=== PATIENT | female | born 1960 | race Caucasian/White ===

== ENCOUNTER 2018-01-22 07:07 | Emergency (ER) | payer OTHER, SELFPAY ==
[2018-01-22 07:08] VITALS: BP 155/110; PULSE 75; RESP 16; TEMP 37.1; O2SAT 96; BMI 44.4
--- NOTE | 2018-01-22 07:30 | CT_ITS ---
STUDY: CT BRAIN WITHOUT CONTRAST REASON FOR EXAM: Female, 57 years old. Sudden onset of dizziness. RADIATION DOSAGE (If Supplied By Facility): CTDIvol = ( 60.81 ) mGy, DLP = ( 998.67 ) mGycm TECHNIQUE: Transaxial CT imaging of the brain was performed without administration of intravenous contrast material. Individualized dose optimization techniques were used for this CT. COMPARISON: None. FINDINGS: Normal soft tissue structures. Normal calvarium. Normal size ventricles and extra-axial spaces for the patient's age. Normal white matter tracts of the cerebral hemispheres. Normal basal ganglia and thalami. Normal brainstem. Normal cerebellum. There is no intracranial hemorrhage. There are no findings of an acute ischemic infarction. Normal visualized paranasal sinuses. CT/Brain/Head without Contrast IMPRESSION: Normal unenhanced CT scan of the brain. Electronically Signed: Kwame Hsu MD at 8:47 EDT Tel [phone], Service support ,
--- NOTE | 2018-01-22 07:30 | EKG12_ITS ---
Test Reason : DIZZINESS Blood Pressure : / mmHG Vent. Rate : 062 BPM Atrial Rate : 062 BPM P-R Int : 142 ms QRS Dur : 082 ms QT Int : 386 ms P-R-T Axes : 038 058 035 degrees QTc Int : 391 ms Normal sinus rhythm Nonspecific T wave abnormality Abnormal ECG Confirmed by FABY LAL, QIAN ([id number]), assistant production editor MARY HECTOR ([id number] on 01/25/2018 1:53:13 PM Referred By: MEGAN Confirmed By:QIAN HOBBS MD
[2018-01-22] MEDS: Meclizine HCl 25 MG Tablet PO (07:43)
--- NOTE | 2018-01-22 07:48 | ED.VISSUMM ---
- ER Visit Summary Date of Service: 01/22/18 Chief Complaint: Dizzy History of Present Illness: The patient is a 57 F who presents with dizziness which she describes as a spinning and off-balance sensation. 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 Patient denies chest pain, palpitations, shortness of breath, or near syncope. Patient states her symptoms are now improving. She denies headache. She states she has had some cold symptoms recently. She has had similar symptoms in the past with fluid in ears. Past history significant for COPD, hypertension, high cholesterol, vertigo, hypothyroidism. Physical Examination: Vital signs reveal blood pressure 155/110, otherwise unremarkable. Head and neck examination is unremarkable other than mild clear fluid behind the TMs bilaterally. Heart is regular rate and rhythm. On lung sounds are clear. Abdomen is soft nontender. Neuro exam is normal. Test Results: EKG is sinus at 62 with no sign of acute ischemia. CBC and chemistry studies are normal. CT the head is unremarkable. Emergency Department Course and Treatment: Patient did have mild reproduction of her symptoms with [place]-Hallpike maneuver. Patient was given p.o. Antivert. On repeat evaluation she has ambulated to the bathroom twice. Patient states the first time she felt slightly dizzy when she first sat up. The second time she had no dizziness at all. She be discharged with a prescription for Antivert. Treatment Plan: [] Disposition: Discharge Impression: Vertigo, improved This note was generated with [employer] dictation software. It may contain incorrect words, spelling, and punctuation that were not noted in review of the chart prior to signing ED Disposition - Plan for ED Patient: Chief Complaint: Dizziness Referrals: Devaughn Ackerman [Primary Care Provider] -
[2018-01-22 07:57] LABS: Absolute Lymphocyte Count 2.13 X10^3/ul (0.83-4.51); Absolute Neutrophil Count 2.8 X10^3/uL (2.0-7.7); Basophil# 0.03 X10^3/uL; Basophil% 0.5 % (0-1); Eosinophil# 0.14 X10^3/uL; Eosinophils% 2.3 % (0-5); Hematocrit 46.1 % (37-47); Hemoglobin 14.9 g/dl (12.0-15.0); Lymphocyte # 2.13 X10^3/ul (4.0); Lymphocyte % 35.5 % (19-41); Mean Corp Hgb Conc 32.3 g/gl (32-36); Mean Corpuscular Hgb 31.2 pg (27.0-32.0); Mean Corpuscular Volume 96.4 fL (81-99); Mean Platelet Vol. 9.8 fl (6.2-12.0); Monocyte# 0.89 X10^3/uL; Monocyte% 14.8 % (0-10); Neutrophil % 46.7 % (47-70); Platelet Count 266 K/mm3 (150-450); RBC Distribution Width CV 13.3 % (11.6-14.6); RBC Distribution Width SD 47.6 fl (35.1-43.9); Red Blood Count 4.78 M/mm3 (4.2-5.4)
[2018-01-22 07:58] LABS: POSITIVE COUNT NO; POSITIVE DIFFERENTIAL NO; POSITIVE MORPHOLOGY NO
[2018-01-22 08:06] LABS: BUN 11 mg/dL (7-18); BUN/Creat Ratio 15.9 RATIO (10-20); Calcium,Total 9.1 mg/dL (8.5-10.1); Chloride 106 mmol/L (98-107); Creatinine, Serum 0.69 mg/dL (0.55-1.02); EST Glomerular Filtration Rate 94 mL/min (>60); Est Glom Filt Rate - Afr Amer 113 mL/min (>60); Estimated Creatinine Clearance 69.52 ml/min; Glucose 84 mg/dL (74-106); Potassium 4.1 mmol/L (3.5-5.1); Sodium Level 140 mmol/L (136-145)
[2018-01-22 08:07] LABS: Anion Gap 6 (5-15)
[2018-01-22 09:20] VITALS: BP 166/95; PULSE 72; RESP 18; O2SAT 97
--- NOTE | 2018-01-22 09:29 | ED.DEP ---
ED Disposition - Plan for ED Patient: Disposition: Home or Assisted Living Chief Complaint: Dizziness Instructions: ED Vertigo Unspecified Prescriptions: Meclizine HCl [Antivert] 25 mg PO 4X/DAY PRN PRN #20 tablet PRN Reason: Dizziness Referrals: Devaughn Ackerman [Primary Care Provider] - 1-2 Weeks
[2018-01-22 09:51] VITALS: BP 161/98; PULSE 72; RESP 16; O2SAT 98
== END 2018-01-22 09:52 | disposition home or self-care (01) ==
PROVIDERS: Emergency Provider Emergency Medicine; Family Provider Nurse Practitioner Family; PCP Nurse Practitioner Family
DX: R42 Dizziness and giddiness (principal); J44.9 Chronic obstructive pulmonary disease, unspecified; I10 Essential (primary) hypertension; E78.00 Pure hypercholesterolemia, unspecified; E03.9 Hypothyroidism, unspecified; Z72.0 Tobacco use; Z79.899 Other long term (current) drug therapy
CPT/HCPCS: 70450; 80048; 85025; 93005; 96360; 96361; 99285; J7030; J7040; A4216

== ENCOUNTER → 2018-02-15 12:33 | Outpatient (CLI) | payer OTHER, SELFPAY ==
--- NOTE | 2018-02-15 12:37 | BI_ITS ---
MAMMOGRAPHY - BILATERAL SCREENING REASON FOR EXAM: Female, 57 years old. Routine annual screening examination. PERTINENT HISTORY: Grandmother with breast cancer. TECHNIQUE: Digital bilateral breast fernando (3D mammographic acquisition) in the CC and MLO projections. 2-D mediolateral oblique (MLO) and craniocaudad (CC) views of both breasts were obtained. CAD: Full Field Digital Mammography with Computer Added Detection was performed. COMPARISON: Comparison is made with prior study dated January 30, 2017 and 2014. FINDINGS: Breast Composition: The breasts are heterogeneously dense, which may obscure small masses. There are no dominant masses or suspicious calcifications. Stable benign-appearing bilateral axillary lymph nodes. No other significant abnormalities are identified. There has been no significant change since the prior study. BI/SCREENING MAMM (CAD), BILAT IMPRESSION: Stable bilateral screening mammogram. Yearly follow-up mammogram recommended. (A) ASSESSMENT CATEGORY: BIRADS Category 2: Benign. A letter regarding these results will be sent to the patient by the facility within 30 days. Approximately 10% of breast cancers are not detected by mammography. A normal mammogram should not delay biopsy of a clinically suspicious abnormality. [id number] Electronically Signed: Kwame Hsu MD at 15:12 EDT Tel [phone], Service support ,
== END ==
PROVIDERS: Family Provider Nurse Practitioner Family; PCP Nurse Practitioner Family; Visit Provider Nurse Practitioner Family
DX: Z12.31 Encounter for screening mammogram for malignant neoplasm of breast (principal)
CPT/HCPCS: 77063; 77067

== ENCOUNTER → 2022-04-26 | Outpatient (CLI) | payer OTHER, SELFPAY ==
--- NOTE | 2022-04-26 12:02 | BI_ITS ---
MAMMOGRAPHY - BILATERAL SCREENING REASON FOR EXAM: Female, 62 years old. Routine annual screening examination. PERTINENT HISTORY: Grandmother with breast cancer. TECHNIQUE: Digital bilateral breast juan (3D mammographic acquisition) in the CC and MLO projections. 2-D mediolateral oblique (MLO) and craniocaudad (CC) views of both breasts were obtained. CAD: Full Field Digital Mammography with Computer Added Detection was performed. COMPARISON: Comparison is made with prior study dated 02/15/2018 and 01/30/2017. FINDINGS: Breast Composition: The breasts are extremely dense, which lowers the sensitivity of mammography. There are no dominant masses or suspicious calcifications. No other significant abnormalities are identified. There has been no significant change since the prior study. BI/SCRN MAMM (CAD)W/JUAN BILAT IMPRESSION: Stable bilateral screening mammogram. Yearly follow-up mammogram recommended. (A) ASSESSMENT CATEGORY: BIRADS Category 1: Negative. A letter regarding these results will be sent to the patient by the facility within 30 days. Approximately 10% of breast cancers are not detected by mammography. A normal mammogram should not delay biopsy of a clinically suspicious abnormality. [id number] Electronically Signed: Kwame Hsu MD at 13:33 EDT ,
== END | disposition home or self-care (01) ==
LOC: OPBI 11:59
PROVIDERS: PCP Nurse Practitioner Family; Visit Provider Nurse Practitioner Family
DX: Z12.31 Encounter for screening mammogram for malignant neoplasm of breast (principal); Z80.3 Family history of malignant neoplasm of breast
CPT/HCPCS: 77063; 77067

== ENCOUNTER → 2024-01-02 | Outpatient (CLI) | payer OTHER, SELFPAY ==
--- NOTE | 2024-01-02 09:46 | BI_ITS ---
MAMMOGRAPHY - BILATERAL SCREENING REASON FOR EXAM: Female, 63 years old. Routine annual screening examination. PERTINENT HISTORY: Grandmother with breast cancer. TECHNIQUE: Digital bilateral breast juan (3D mammographic acquisition) in the CC and MLO projections. 2-D mediolateral oblique (MLO) and craniocaudad (CC) views of both breasts were obtained. CAD: Full Field Digital Mammography with Computer Added Detection was performed. COMPARISON: Comparison is made with prior study April 26, 2022 and February 15, 2018. FINDINGS: Breast Composition: The breasts are extremely dense, which lowers the sensitivity of mammography. There are no dominant masses or suspicious calcifications. No other significant abnormalities are identified. There has been no significant change since the prior study. BI/SCRN MAMM (CAD)W/JUAN BILAT IMPRESSION: Stable bilateral screening mammogram. Yearly follow-up mammogram recommended. (A) ASSESSMENT CATEGORY: BIRADS Category 1: Negative. A letter regarding these results will be sent to the patient by the facility within 30 days. Approximately 10% of breast cancers are not detected by mammography. A normal mammogram should not delay biopsy of a clinically suspicious abnormality. [id number] Electronically Signed: Kwame Hsu MD at 12:50 EDT ,
== END | disposition home or self-care (01) ==
PROVIDERS: PCP Nurse Practitioner Family; Referring Provider Nurse Practitioner Family; Visit Provider Nurse Practitioner Family
DX: Z12.31 Encounter for screening mammogram for malignant neoplasm of breast (principal)
CPT/HCPCS: 77063; 77067

== ENCOUNTER → 2025-06-19 | Outpatient (CLI) | payer OTHER, SELFPAY ==
--- NOTE | 2025-06-19 10:28 | BI_ITS ---
EXAM: SCRN MAMM (CAD)W/JUAN BILAT DATE: 06/19/2025 CLINICAL HISTORY: F, Age 65 y/o , SCREENING TECHNIQUE: Procedure Code: [id number] Modality: MG Procedure: SCRN MAMM (CAD)W/JUAN BILAT COMPARISON: Prior exam(s) were compared. FINDINGS: TISSUE DENSITY: The breasts are heterogeneously dense, which may obscure small masses. Bilateral Breast Mammographic Findings: No suspicious masses, calcifications or other abnormalities are identified. BI/SCRN MAMM (CAD)W/JUAN BILAT IMPRESSION: No mammographic evidence of malignancy in either breast. OVERALL FINAL ASSESSMENT BI-RADS 1: NEGATIVE. RECOMMENDATION: Routine annual follow-up in 1 Year Additional Recommendation none A letter with findings and recommendations will be mailed to the patient. Reading Location: [id number]
--- OUTSIDE RECORDS SUMMARY | 2025-06-19 10:52 | XMS RPT_ITS | CCD ---
Author Organization [facility] Partnership [facility] Care Team Providers Care Charity Fundraiser Name Role Phone [employer] ASSEMBLY INSPECTOR - GURU, DEVAUGHN Sin Primary Care [facility] ician PRUDENCE LAL, DR VIKKI ANGUIANO Attending Unav ailable [employer] INSPECTOR - CLINICAL OFFICE TECHNICIAN, DEVAUGHN Sin Primary Care U SAADIA Mcleod MD Consulting [place] FOSS MD, DR VIKKI ANGUIANO Consulting Johnna FOSS MD, DR VIKKI ANGUIANO Attending Unav ailable [employer]BLY INSPECTOR - CLINICAL OFFICE TECHNICIAN, DEVAUGHN Sin Primary Care U navailable [employer]Y INSPECTOR - CLINICAL OFFICE TECHNICIAN, DEVAUGHN Sin Attending U navailable [employer]SEM[employer]Y INSPECTOR - CLINICAL OFFICE TECHNICIAN, DEVAUGHN Sin Primary Care U navailable [employer]SEMBLY INSPECTOR - CLINICAL OFFICE TECHNICIAN, DEVAUGHN Sin Attending U navailable [employer] ASSEMBLY INSPECTOR - CLINICAL OFFICE TECHNICIAN, DEVAUGHN Sin Primary Care U navailable [employer]SEM[employer]Y INSPECTOR - CLINICAL OFFICE TECHNICIAN, DEVAUGHN Sin Attending U navailable [employer] ASSEMBLY INSPECTOR - CLINICAL OFFICE TECHNICIAN, DEVAUGHN Sin Primary Care U navailable [employer]SEMBLY INSPECTOR - CLINICAL OFFICE TECHNICIAN, DEVAUGHN Sin Attending U navailable [employer]Y INSPECTOR - CLINICAL OFFICE TECHNICIAN, DEVAUGHN Sin Primary Care U navailable WESLEY ORELLANA Attending Unavailable [employer]SEMBLY INSPECTOR - CLINICAL OFFICE TECHNICIAN, DEVAUGHN Sin Primary Care U rigoberto FOSS MD, DR VIKKI ANGUIANO Attending Unav ailable [employer] ASSEMBLY INSPECTOR - CLINICAL OFFICE TECHNICIAN, DEVAUGHN Sin Primary Care U rigoberto FOSS MD, DR VIKKI ANGUIANO Attending Unav ailable [employer]SEMBLY INSPECTOR - GURU, DEVAUGHN Sin Primary Care U navailable [facility] MEMORANDUM STATEMENT CLERK, Devaughn Graham Referring Unav ailable [facility] MEMORANDUM STATEMENT CLERK, Devaughn Graham Attending Unav ailable [facility] MEMORANDUM STATEMENT CLERK, Devaughn Graham Primary Care Unav ailable Allergies Allergy Classification Reported Allergen(s) Allergy Type Date of Onset Reaction(s) Facility (3 sources) Adhesive agent; Translations: [adhesive] Propensity to adverse reactions 01-23-20 [facility] (7 sources) Codeine; Translations: [codeine] Drug Allergy 01-23-20 Nausea and vomiting (disorder) [facility] (2 sources) Lidocaine Drug Allergy 01-23-20 [facility] (5 sources) Adhesive bandage Allergy to substance Cutaneous eruption (morphologic abnormality) [facility] [place] (5 sources) Latex Allergy to substance Weal (disorder) [facility] (5 sources) Class Ic antiarrhythmic agent (substance); Translations: [local anesthetic-type antiarrhythmics] Drug allergy Eruption of skin (disorder), Inflammatory dermatosis (disorder), Weal (disorder) [facility] Comment on above: x1 during breast bio psy (5 sources) Aloes - chemical (substance); Translations: [aloe derivatives] Allergy to substance Weal (disorder) [facility] [place] (5 sources) [place] Allergy to substance Difficulty breathing (finding), Eruption of skin (disorder) [facility] [place] (1 source) strawberry allergenic extract Drug Allergy Weal (disorder) [facility] [place] (1 source) Codeine Drug Allergy 01-23-20 [facility] (1 source) Lidocaine Drug Allergy 01-23-20 [facility] Medications Current Medications Medication Drug Class(es) Dates Sig (Normalized) Sig (Original) albuterol MDI (90 mcg/inh) [facility]FC free inhalation aerosol (1 source) Start: 11-16-2023 take 1 puff(s) by inhalation every four hours as needed for wheezing albuterol MDI (90 mcg/inh) CFC free inhalation aerosol 1 puff(s), Inhalation, q4h, PRN as needed for wheezing, # 18 gram(s), 2 Refill(s), Pharmacy: [facility] #[id number], COPD - Chronic obstructive pulmonary disease, 153.3, cm, 11/16/23 11:40:00 EST, Height, kg, 11/16/23 11:40:00 EST, Dosing Weight Start Date: 11/16/23 Status: Ordered amoxicillin 500 mg oral capsule (1 source) Penicillin-class Antibacterial Start: 06-14-2023 take 1 capsule by mouth three times daily amoxicillin 500 mg oral capsule TAKE 1 CAPSULE BY MOUTH THREE TIMES A DAY UNTIL GONE Start Date: 06/14/23 Status: Ordered Anoro Ellipta 62.5 mcg-25 mcg/inh inhalation powder (5 sources) Start: 11-16-2023 End: 02-14-2024 take 1 dose by inhalation once daily Anoro Ellipta 62.5 mcg-25 mcg/inh inhalation powder Dose = 1 puff(s), Inhalation, qDay, # 3 EA, 0 Refill(s), Pharmacy: [facility], COPD, moderate, 153.3, cm, 11/16/23 11:40:00 EST, Height, kg, 11/16/23 11:40:00 EST, Dosing Weight Start Date: 11/16/23 Stop Date: 02/14/24 Status: Ordered Start: 06-07-2023 End: 12-04-2023 take 1 dose by inhalation once daily Anoro Ellipta 62.5 mcg-25 mcg/inh inhalation powder Dose = 1 puff(s), Inhalation, qDay, # 3 EA, 1 Refill(s), Pharmacy: [facility]/pharmacy #[id number], COPD, moderate, 154.9, cm, 06/07/23 10:43:00 EDT, Height, kg, 06/07/23 10:43:00 EDT, Dosing Weight Start Date: 06/07/23 Stop Date: 12/04/23 Status: Ordered Start: 11-13-2022 End: 05-12-2023 take 1 dose by inhalation once daily Anoro Ellipta 62.5 mcg-25 mcg/inh inhalation powder Dose = 1 puff(s), Inhalation, qDay, # 3 EA, 1 Refill(s), Pharmacy: [facility], COPD, moderate, 152.5, cm, 11/13/22 10:17:00 EST, Height, kg, 11/13/22 10:17:00 EST, Dosing Weight Start Date: 11/13/22 Stop Date: 05/12/23 Status: Ordered ergocalciferol 1.25 mg oral capsule (2 sources) Provitamin D2 Compound Start: 01-22-2018 take 1 capsule by mouth every week Ergocalciferol (Vitamin D2) (Vitamin D) 50,000 UNIT capsule Active 50894 UNIT PO Q7D January 22, 2018 12:00am levothyroxine sodium 0.05 mg oral tablet (7 sources) l-Thyroxine Start: 11-16-2023 End: 12-16-2023 Synthroid 50 mcg (0.05 mg) oral tablet Dose : 50 mcg = 1 tab(s), Oral, qDay, # 30 tab(s), 0 Refill(s), Pharmacy: [facility], 153.3, cm, 11/16/23 11:40:00 EST, Height, kg, 11/16/23 11:40:00 EST, Dosing Weight Start Date: 11/16/23 Stop Date: 12/16/23 Status: Ordered Start: 06-07-2023 Synthroid 50 m cg (0.05 mg) oral tablet Dose : 50 mcg = 1 tab(s), Oral, qDay, # 90 tab(s), 1 Refill(s), Pharmacy: [facility]/pharmacy #[id number], 154.9, cm, 06/07/23 10:43:00 EDT, Height, kg, 06/07/23 10:43:00 EDT, Dosing Weight Start Date: 06/07/23 Status: Ordered Start: 12-05-2022 Synthroid 50 m cg (0.05 mg) oral tablet Dose : 50 mcg = 1 tab(s), Oral, qDay, # 90 tab(s), 1 Refill(s), Pharmacy: [facility], 152.5, cm, 12/05/22 9:54:00 EDT, Height, kg, 11/13/22 10:17:00 EST, Dosing Weight Start Date: 12/05/22 Status: Ordered Start: 01-22-2018 take 50 ug by mouth once daily Levothyroxine Active 50 MCG PO DAILY January 22, 2018 12:00am losartan potassium 50 mg oral tablet (5 sources) Angiotensin 2 Receptor Dianna Start: 06-07-2023 End: 12-16-2023 losartan 50 mg oral tablet Dose : 50 mg = 1 tab(s), Oral, qDay, # 30 tab(s), 0 Refill(s), Pharmacy: [facility], HTN, goal below 140/90, 153.3, cm, 11/16/23 11:40:00 EST, Height, kg, 11/16/23 11:40:00 EST, Dosing Weight Start Date: 11/16/23 Stop Date: 12/16/23 Status: Ordered Start: 11-13-2022 End: 05-12-2023 losartan 50 mg oral tablet D ose : 50 mg = 1 tab(s), Oral, qDay, # 90 tab(s), 1 Refill(s), Pharmacy: [facility], HTN, goal below 140/90, 152.5, cm, 11/13/22 10:17:00 EST, Height, kg, 11/13/22 10:17:00 EST, Dosing Weight Start Date: 11/13/22 Stop Date: 05/12/23 Status: Ordered lovastatin 20 mg oral tablet (7 sources) HMG-CoA Reductase Inhibitor Start: 06-07-2023 End: 12-16-2023 lovastatin 20 mg oral tablet Dose : 20 mg = 1 tab(s), Oral, qDay, # 30 tab(s), 0 Refill(s), Pharmacy: [facility], Hyperlipidemia, 153.3, cm, 11/16/23 11:40:00 EST, Height, kg, 11/16/23 11:40:00 EST, Dosing Weight Start Date: 11/16/23 Stop Date: 12/16/23 Status: Ordered Start: 01-22-2018 End: 05-12-2023 lovastatin 20 mg oral tablet Dose : 20 mg = 1 tab(s), Oral, qDay, # 90 tab(s), 1 Refill(s), Pharmacy: [facility], Hyperlipidemia, 152.5, cm, 11/13/22 10:17:00 EST, Height, kg, 11/13/22 10:17:00 EST, Dosing Weight Start Date: 11/13/22 Stop Date: 05/12/23 Status: Ordered meclizine hydrochloride 25 mg oral tablet (5 sources) Antiemetic Start: 01-22-2018 meclizine 25 mg oral tablet Dose : 25 mg = 1 tab(s), Oral, Daily, # 30 tab(s), 0 Refill(s) Start Date: 06/07/23 Status: Ordered mupirocin 0.02 mg/mg topical ointment (2 sources) RNA Synthetase Inhibitor Antibacterial Start: 04-12-2023 mupirocin 2% topical ointment Apply 1 camilo, Topical, BID, Bilateral intranasal application twice daily x 5 days pre-surgery &/or as many days pre-surgery as possible., Apply to: nostril, each, # 22 gram(s), 0 Refill(s), Pharmacy: [facility]/pharmacy #[id number], Ointment, 153.5, cm, 04/12/23 8:54:00 EDT, Height, 73.2, kg, 04/12/23 8:54:00 EDT, Dosing Weight Start Date: 04/12/23 Status: Ordered 7 actuat umeclidinium 0.0625 mg/actuat / vilanterol 0.025 mg/actuat dry powder inhaler (2 sources) Anticholinergic, beta2-Adrenergic Agonist Start: 01-22-2018 take 1 dose by inhalation once daily Umeclidinium-Chana anterol (Anoro Ellipta 62.5-25 Mcg Inh) 1 EACH blister with device Active 1 EACH IH DAILY January 22, 2018 12:00am valsartan 80 mg oral tablet (2 sources) Angiotensin 2 Receptor Dianna Start: 01-22-2018 take 80 mg by mouth once daily Valsartan Active 80 MG PO DAILY January 22, 2018 12:00am Problems Problem Classification Problem Date Documented Date Episodic/Chronic Abdominal hernia (5 sources) Umbilical hernia 02-09-2023 Episodic Abdominal pain (5 sources) Abdominal pain 01-23-2023 Episodic Chronic obstructive pulmonary disease and bronchiectasis (10 sources) Chronic obstructive lung disease; Translations: [Moderate chronic obstructive pulmonary disease] 02-20-2023 Chronic Complications of surgical procedures or medical care (5 sources) Postsurgical menopause 05-30-2019 Chronic Deficiency and other anemia (5 sources) Macrocytic anemia 06-10-2021 Episodic Deficiency and other anemia (2 sources) Nutritional anemia, unspecified; Translations: [Nutritional anemia, unspecified] Onset: 11-29-2023 Episodic Disorders of lipid metabolism (12 sources) Hyperlipidemia; Translations: [Hypertriglyceridemia ] Onset: 11-29-2023 05-30-2019 Chronic Essential hypertension (7 sources) Hypertensive disorder; Translations: [Essential (primary) hypertension] Onset: 11-29-2023 12-02-2019 Chronic Genitourinary symptoms and ill-defined conditions (5 sources) Blood in urine 01-23-2023 Episodic Nutritional deficiencies (7 sources) Vitamin D deficiency; Translations: [Vitamin D deficiency, unspecified] Onset: 11-29-2023 12-02-2019 Chronic Osteoarthritis (5 sources) Osteoarthritis 12-06-2020 Chronic Other connective tissue disease (5 sources) Disorder of abdominal wall 02-21-2023 Episodic Other screening for suspected conditions (not mental disorders or infectious disease) (1 source) Encounter for screening mammogram for malignant neoplasm of breast; Translations: [Encounter for screening mammogram for malignant neoplasm of breast] Onset: 06-10-2025 Episodic Otitis media and related conditions (1 source) Otitis media of left ear 11-16-2023 Episodic Residual codes; unclassified (5 sources) Obstructive sleep apnea syndrome 06-02-2019 Chronic Residual codes; unclassified (8 sources) Increased body mass index 12-02-2019 Episodic Thyroid disorders (7 sources) Hypothyroidism; Translations: [Hypothyroidism, unspecified] Onset: 11-29-2023 12-02-2019 Chronic Unclassified (5 sources) Patient encounter status 06-07-2020 Results Test Name Value Interpretation Reference Range Facility .Auto Diffon 11-29-2023 Basophil, Absolute 0.1 10 3/mcL Normal 0.0-0.2 [facility] ([place]) Comment on above: Performed By: #### F T4, GFR, VIDH, ANEU, CMP, LIPID, CBC, TSH, ADIFF ####[address] [place], [place] [address] Basophils/100 WBC (Bld) 1.0 % Normal 0.0-2.5 [facility] ([place]) Comment on above: Performed By: #### F T4, GFR, VIDH, ANEU, CMP, LIPID, CBC, TSH, ADIFF ####[address] [place], [place] [address] Eosinophil, Absolute 0.1 10 3/mcL Normal 0.0-0.4 [facility] ([place]) Comment on above: Performed By: #### F T4, GFR, VIDH, ANEU, CMP, LIPID, CBC, TSH, ADIFF ####[address] [place], [place] [address] Eosinophils/100 WBC (Bld) 2.0 % Normal 0.0-7.0 [facility] ([place]) Comment on above: Performed By: #### F T4, GFR, VIDH, ANEU, CMP, LIPID, CBC, TSH, ADIFF ####[address] [place], [place] [address] Lymphocyte, Absolute 2.3 10 3/mcL Normal 0.8-3.9 [facility] ([place]) Comment on above: Performed By: #### F T4, GFR, VIDH, ANEU, CMP, LIPID, CBC, TSH, ADIFF ####[address] [place], [place] [address] Lymphocytes/100 WBC (Bld) 32.0 % Normal 10.0-50.0 [facility] ([place]) Comment on above: Performed By: #### F T4, GFR, VIDH, ANEU, CMP, LIPID, CBC, TSH, ADIFF ####[address] [place], [place] [address] Monocyte, Absolute 0.4 10 3/mcL Normal 0.2-1.0 [facility] ([place]) Comment on above: Performed By: #### F T4, GFR, VIDH, ANEU, CMP, LIPID, CBC, TSH, ADIFF ####[address] [place], [place] [address] Monocytes/100 WBC (Bld) 5.8 % Normal 1.7-13.0 [facility] ([place]) Comment on above: Performed By: #### F T4, GFR, VIDH, ANEU, CMP, LIPID, CBC, TSH, ADIFF ####[address] [place], [place] [address] Neutrophils/100 WBC (Bld) 59.2 % Normal 37.0-80.0 [facility] ([place]) Comment on above: Performed By: #### F T4, GFR, VIDH, ANEU, CMP, LIPID, CBC, TSH, ADIFF ####[address] [place], [place] [address] .GFRon 11-29-2023 GFR 123 ml/min/1.73sqm Normal [facility] ([place]) Comment on above: Result Comment: GFR Population mean for , Non- Americans Ages 20-29 = 116 mL/min/1.73 sq.m. Ages 30-39 = 107 mL/min/1.73 sq.m. Ages 40-49 = 99 mL/min/1.73 sq.m. Ages 50-59 = 93 mL/min/1.73 sq.m. Ages 60-69 = 85 mL/min/1.73 sq.m. Ages 70+ = 75 mL/min/1.73 sq.m. Chronic Kidney Disease: Less than 60 mL/min/1.73 square meters End Stage Renal Disease: Less than 15 mL/min/1.73 square meters Performed By: #### F T4, GFR, VIDH, ANEU, CMP, LIPID, CBC, TSH, ADIFF ####[address] [place], [place] [address] GFR Non- 102 ml/min/1.73sqm Normal [facility] ([place]) Comment on above: Result Comment: GFR Population mean for , Non- Americans Ages 20-29 = 116 mL/min/1.73 sq.m. Ages 30-39 = 107 mL/min/1.73 sq.m. Ages 40-49 = 99 mL/min/1.73 sq.m. Ages 50-59 = 93 mL/min/1.73 sq.m. Ages 60-69 = 85 mL/min/1.73 sq.m. Ages 70+ = 75 mL/min/1.73 sq.m. Chronic Kidney Disease: Less than 60 mL/min/1.73 square meters End Stage Renal Disease: Less than 15 mL/min/1.73 square meters Performed By: #### F T4, GFR, VIDH, ANEU, CMP, LIPID, CBC, TSH, ADIFF ####[place] [id number] .NEUABSon 11-29-2023 Neutrophil, Absolute 4.3 10 3/mcL Normal 2.9-6.2 [facility] ([place]) Comment on above: Performed By: #### F T4, GFR, VIDH, ANEU, CMP, LIPID, CBC, TSH, ADIFF ####[place] [id number] CBCon 11-29-2023 Erythrocyte distribution width (RBC) [Ratio] 13.7 % Normal 11.5-14.5 [facility] ([place]) Comment on above: Performed By: #### F T4, GFR, VIDH, ANEU, CMP, LIPID, CBC, TSH, ADIFF #### [place] [address] Hematocrit (Bld) [Volume fraction] 45.3 % Normal 37.0-47.0 [facility] ([place]) Comment on above: Performed By: #### F T4, GFR, VIDH, ANEU, CMP, LIPID, CBC, TSH, ADIFF #### [place] [address] Hgb 15.6 G/dL Normal 12.0-16.0 [facility] ([place]) Comment on above: Performed By: #### F T4, GFR, VIDH, ANEU, CMP, LIPID, CBC, TSH, ADIFF #### [place] [address] MCH (RBC) [Entitic mass] 33.0 pg High 27.0-31.2 [facility] ([place]) Comment on above: Performed By: #### F T4, GFR, VIDH, ANEU, CMP, LIPID, CBC, TSH, ADIFF #### [place] [address] MCHC 34.4 G/dL Normal 33.0-37.0 [facility] ([place]) Comment on above: Performed By: #### F T4, GFR, VIDH, ANEU, CMP, LIPID, CBC, TSH, ADIFF #### [place] [address] MCV (RBC) [Entitic vol] 95.7 fL High 80.0-94.0 [facility] ([place]) Comment on above: Performed By: #### F T4, GFR, VIDH, ANEU, CMP, LIPID, CBC, TSH, ADIFF #### [address] [address] Platelet 334 10 3/mcL Normal 130-400 [facility] ([place]) Comment on above: Performed By: #### F T4, GFR, VIDH, ANEU, CMP, LIPID, CBC, TSH, ADIFF #### [address] [address] Platelet mean volume (Bld) [Entitic vol] 7.7 fL Normal 7.4-10.4 [facility] ([place]) Comment on above: Performed By: #### F T4, GFR, VIDH, ANEU, CMP, LIPID, CBC, TSH, ADIFF #### [address] [address] RBC 4.74 10 6/mcL Normal 4.20-5.40 [facility] ([place]) Comment on above: Performed By: #### F T4, GFR, VIDH, ANEU, CMP, LIPID, CBC, TSH, ADIFF #### [address] [address] WBC 7.3 10 3/mcL Normal 4.6-10.8 [facility] ([place]) Comment on above: Performed By: #### F T4, GFR, VIDH, ANEU, CMP, LIPID, CBC, TSH, ADIFF #### [address] [address] CMPon 11-29-2023 Albumin Level 3.7 G/dL Normal 3.4-4.8 [facility] ([place]) Comment on above: Performed By: #### F T4, GFR, VIDH, ANEU, CMP, LIPID, CBC, TSH, ADIFF ####[address] [address] Albumin/Globulin [Mass ratio] 1.2 {ratio} Normal 1.1-2.5 [facility] ([place]) Comment on above: Performed By: #### F T4, GFR, VIDH, ANEU, CMP, LIPID, CBC, TSH, ADIFF ####[address] [place], [place] [address] ALP [Catalytic activity/Vol] 69 U/L Normal 40-135 [facility] ([place]) Comment on above: Performed By: #### F T4, GFR, VIDH, ANEU, CMP, LIPID, CBC, TSH, ADIFF ####[address] [place], [place] [address] ALT [Catalytic activity/Vol] 26 U/L Normal 14-59 [facility] ([place]) Comment on above: Performed By: #### F T4, GFR, VIDH, ANEU, CMP, LIPID, CBC, TSH, ADIFF ####[address] [place], [place] [address] AST [Catalytic activity/Vol] 17 U/L Normal 10-40 [facility] ([place]) Comment on above: Performed By: #### F T4, GFR, VIDH, ANEU, CMP, LIPID, CBC, TSH, ADIFF ####[address] [place], [place] [address] Bili Total 1.2 mg/dL High 0.2-1.0 [facility] ([place]) Comment on above: Result Comment: Use of this assay is not recommended for patients undergoing treatment with eltrombopag due to the potential for falsely elevated results. Performed By: #### F T4, GFR, VIDH, ANEU, CMP, LIPID, CBC, TSH, ADIFF ####[address] [place], [place] [address] BUN/Creatinine Ratio 18 ratio Normal 7-27 [facility] ([place]) Comment on above: Performed By: #### F T4, GFR, VIDH, ANEU, CMP, LIPID, CBC, TSH, ADIFF ####[address] [place], [place] [address] Calcium [Mass/Vol] 8.9 mg/dL Normal 8.4-10.2 [facility] ([place]) Comment on above: Performed By: #### F T4, GFR, VIDH, ANEU, CMP, LIPID, CBC, TSH, ADIFF ####[address] [place], [place] [address] Chloride [Moles/Vol] 102 mmol/L Normal 98-107 [facility] ([place]) Comment on above: Performed By: #### F T4, GFR, VIDH, ANEU, CMP, LIPID, CBC, TSH, ADIFF ####[address] [place], [place] [address] CO2 [Moles/Vol] 31 mmol/L Normal 23-31 [facility] ([place]) Comment on above: Performed By: #### F T4, GFR, VIDH, ANEU, CMP, LIPID, CBC, TSH, ADIFF ####[address] [place], [place] [address] Creatinine [Mass/Vol] 0.60 mg/dL Normal 0.55-1.02 [facility] ([place]) Comment on above: Performed By: #### F T4, GFR, VIDH, ANEU, CMP, LIPID, CBC, TSH, ADIFF ####[address] [place], [place] [address] Electrolyte Balance 6.0 mEq/L Normal 4.0-15.0 [facility] ([place]) Comment on above: Performed By: #### F T4, GFR, VIDH, ANEU, CMP, LIPID, CBC, TSH, ADIFF ####[address] [place], [place] [address] Globulin 3.2 G/dL Normal [facility] ([place]) Comment on above: Performed By: #### F T4, GFR, VIDH, ANEU, CMP, LIPID, CBC, TSH, ADIFF ####[address] [place], [place] [address] Glucose [Mass/Vol] 77 mg/dL Low 80-115 [facility] ([place]) Comment on above: Performed By: #### F T4, GFR, VIDH, ANEU, CMP, LIPID, CBC, TSH, ADIFF ####[place] [address] [place], [place] [address] Potassium [Moles/Vol] 4.7 mmol/L Normal 3.5-5.1 [facility] ([place]) Comment on above: Performed By: #### F T4, GFR, VIDH, ANEU, CMP, LIPID, CBC, TSH, ADIFF ####[address] [place], [place] [address] Sodium [Moles/Vol] 139 mmol/L Normal 136-145 [facility] ([place]) Comment on above: Performed By: #### F T4, GFR, VIDH, ANEU, CMP, LIPID, CBC, TSH, ADIFF ####[address] [place], [place] [address] Total Protein 6.9 G/dL Normal 6.4-8.2 [facility] ([place]) Comment on above: Performed By: #### F T4, GFR, VIDH, ANEU, CMP, LIPID, CBC, TSH, ADIFF ####[address] [place], [place] [address] Urea nitrogen [Mass/Vol] 11 mg/dL Normal 7-18 [facility] ([place]) Comment on above: Performed By: #### F T4, GFR, VIDH, ANEU, CMP, LIPID, CBC, TSH, ADIFF ####[address] [place], [place] [address] FT4on 11-29-2023 Free T4 [Mass/Vol] 1.11 ng/dL Normal 0.76-1.46 [facility] ([place]) Comment on above: Performed By: #### F T4, GFR, VIDH, ANEU, CMP, LIPID, CBC, TSH, ADIFF ####[address] [place], [place] [address] LABORATORYOrdered By: SYSTEM SYSTEM on 11-29-2023 25-hydroxyvitamin D3 [Mass/Vol] 24.8 ng/mL Invalid Interpretation Code AO ADM SS Comment on above: Interpretive Data: I nterpretive Values Based on Total 25(OH) Vitamin D: Deficient <20 ng/mL Insufficient 20 - <30 ng/mL Sufficient 30-100 ng/mL Albumin BCP dye [Mass/Vol] 3.7 G/dL Normal 3.4 - 4.8 G/dL AO ADM SS Albumin/Globulin [Mass ratio] 1.2 {ratio} Normal 1.1 - 2.5 ratio AO ADM SS ALP [Catalytic activity/Vol] 69 U/L Normal 40 - 135 U/L AO ADM SS ALT With P-5'-P [Catalytic activity/Vol] 26 U/L Normal 14 - 59 U/L AO ADM SS AST With P-5'-P [Catalytic activity/Vol] 17 U/L Normal 10 - 40 U/L AO ADM SS Basophil, Absolute 0.1 103/mcL Normal 0.0 - 0.2 10^3/mcL AO Workflow SS Basophils/100 WBC (Bld) 1.0 % Normal 0.0 - 2.5 % AO Workflow SS Bilirubin [Mass/Vol] 1.2 mg/dL High 0.2 - 1 .0 mg/dL AO ADM SS Comment on above: Interpretive Data: U se of this assay is not recommended for patients undergoing treatment with eltrombopag due to the potential for falsely elevated results. Calcium [Mass/Vol] 8.9 mg/dL Normal 8.4 - 10. 2 mg/dL AO ADM SS Chloride [Moles/Vol] 102 mmol/L Normal 98 - 10 7 mmol/L AO ADM SS CO2 [Moles/Vol] 31 mmol/L Normal 23 - 31 mmol/L AO ADM SS Creatinine [Mass/Vol] 0.60 mg/dL Normal 0.55 - 1.02 mg/dL AO ADM SS Electrolyte Balance 6.0 mEq/L Normal 4.0 - 15 .0 mEq/L AO ADM SS Eosinophil, Absolute 0.1 103/mcL Normal 0.0 - 0 .4 10^3/mcL AO Workflow SS Eosinophils/100 WBC (Bld) 2.0 % Normal 0.0 - 7.0 % AO Workflow SS Erythrocyte distribution width (RBC) [Ratio] 13.7 % Normal 11.5 - 14.5 % AO Workflow SS Free T4 [Mass/Vol] 1.11 ng/dL Normal 0.76 - 1. 46 ng/dL AO ADM SS GFR/1.73 sq M.predicted among blacks MDRD (S/P/Bld) [Vol rate/Area] 123 ml/min/1.73sqm Invalid Interpretation Code AO Chemistry S Comment on above: Interpretive Data: GFR Population mean for , Non- Americans Ages 20-29 = 116 mL/min/1.73 sq.m. Ages 30-39 = 107 mL/min/1.73 sq.m. Ages 40-49 = 99 mL/min/1.73 sq.m. Ages 50-59 = 93 mL/min/1.73 sq.m. Ages 60-69 = 85 mL/min/1.73 sq.m. Ages 70+ = 75 mL/min/1.73 sq.m. Chronic Kidney Disease: Less than 60 mL/min/1.73 square meters End Stage Renal Disease: Less than 15 mL/min/1.73 square meters GFR/1.73 sq M.predicted among non-blacks MDRD (S/P/Bld) [Vol rate/Area] 102 ml/min/1.73sqm Invalid Interpretation Code AO Chemistry S Comment on above: Interpretive Data: GFR Population mean for , Non- Americans Ages 20-29 = 116 mL/min/1.73 sq.m. Ages 30-39 = 107 mL/min/1.73 sq.m. Ages 40-49 = 99 mL/min/1.73 sq.m. Ages 50-59 = 93 mL/min/1.73 sq.m. Ages 60-69 = 85 mL/min/1.73 sq.m. Ages 70+ = 75 mL/min/1.73 sq.m. Chronic Kidney Disease: Less than 60 mL/min/1.73 square meters End Stage Renal Disease: Less than 15 mL/min/1.73 square meters Globulin 3.2 G/dL Invalid Interpretation Code AO ADM SS Glucose [Mass/Vol] 77 mg/dL Low 80 - 115 mg/dL AO ADM SS Hematocrit (Bld) [Volume fraction] 45.3 % Normal 37.0 - 47.0 % AO Workflow SS Hemoglobin (Bld) [Mass/Vol] 15.6 G/dL Normal 12.0 - 16.0 G/dL AO Workflow SS Lymphocyte, Absolute 2.3 103/mcL Normal 0.8 - 3 .9 10^3/mcL AO Workflow SS Lymphocytes/100 WBC (Bld) 32.0 % Normal 10.0 - 50.0 % AO Workflow SS MCH (RBC) [Entitic mass] 33.0 pg High 27.0 - 31.2 pg AO Workflow SS MCHC 34.4 G/dL Normal 33.0 - 37.0 G/dL AO Workflow SS MCV (RBC) [Entitic vol] 95.7 fL High 80.0 - 94.0 fL AO Workflow SS Monocyte, Absolute 0.4 103/mcL Normal 0.2 - 1.0 10^3/mcL AO Workflow SS Monocytes/100 WBC (Bld) 5.8 % Normal 1.7 - 13.0 % AO Workflow SS Neutrophil, Absolute 4.3 103/mcL Normal 2.9 - 6 .2 10^3/mcL AO Workflow SS Neutrophils/100 WBC (Bld) 59.2 % Normal 37.0 - 80.0 % AO Workflow SS Platelet mean volume (Bld) [Entitic vol] 7.7 fL Normal 7.4 - 10.4 fL AO Workflow SS Platelets (Bld) [#/Vol] 334 103/mcL Normal 130 - 400 10^3/mcL AO Workflow SS Potassium [Moles/Vol] 4.7 mmol/L Normal 3.5 - 5.1 mmol/L AO ADM SS Protein [Mass/Vol] 6.9 G/dL Normal 6.4 - 8.2 G/dL AO ADM SS RBC (Bld) [#/Vol] 4.74 106/mcL Normal 4.20 - 5.4 0 10^6/mcL AO Workflow SS Sodium [Moles/Vol] 139 mmol/L Normal 136 - 145 mmol/L AO ADM SS TSH Qn 1.46 m[IU]/L Normal 0.36 - 3.74 mcIU/mL AO ADM SS Urea nitrogen [Mass/Vol] 11 mg/dL Normal 7 - 18 mg/dL AO ADM SS Urea nitrogen/Creatinine [Mass ratio] 18 ratio Normal 7 - 27 ratio AO ADM SS WBC (Bld) [#/Vol] 7.3 103/mcL Normal 4.6 - 10.8 10^3/mcL AO Workflow SS LABORATORYOrdered By: Misty Camacho on 11-29-2023 Albumin DL <= 20 mg/L (U) [Mass/Vol] 1091 mcg/dL Invalid Interpretation Code AO ADM SS Albumin/Creatinine DL <= 20 mg/L (U) [Mass ratio] 20 mcg/mg Normal 0 - 30 mcg/mg AO ADM SS Creatinine (U) [Mass/Vol] 54.4 mg/dL Normal 28.0 - 117.0 mg/dL AO ADM SS LABORATORYOrdered By: Dirk Carrion on 11-29-2023 Cholesterol [Mass/Vol] 171 mg/dL Normal 0 - 200 mg/dL AO ADM SS Comment on above: Interpretive Data: C holesterol Reference Interval: Less than 200 Desirable 200-239 Borderline high risk 240 and above High risk Cholesterol in HDL [Mass/Vol] 70 mg/dL High 40 - 60 mg/dL AO ADM SS Cholesterol in LDL [Mass/Vol] 81 mg/dL Normal 0 - 130 mg/dL AO ADM SS Triglyceride [Mass/Vol] 101 mg/dL Normal 0 - 150 mg/dL AO ADM SS Comment on above: Interpretive Data: T riglyceride Reference Interval: Less than 150 Normal 150-199 Borderline high risk 200-499 High risk 500 or higher Very high risk LIPIDon 11-29-2023 Cholesterol [Mass/Vol] 171 mg/dL Normal 0-200 [facility] ([place]) Comment on above: Result Comment: Chol esterol Reference Interval: Less than 200 Desirable 200-239 Borderline high risk 240 and above High risk Performed By: #### F T4, GFR, VIDH, ANEU, CMP, LIPID, CBC, TSH, ADIFF ####[address] [place], [place] [address] Cholesterol in HDL [Mass/Vol] 70 mg/dL High 40-60 [facility] ([place]) Comment on above: Performed By: #### F T4, GFR, VIDH, ANEU, CMP, LIPID, CBC, TSH, ADIFF ####[address] [place], [place] [address] Cholesterol in LDL [Mass/Vol] 81 mg/dL Normal 0-130 [facility] ([place]) Comment on above: Performed By: #### F T4, GFR, VIDH, ANEU, CMP, LIPID, CBC, TSH, ADIFF ####[address] [place], [place] [address] Triglyceride [Mass/Vol] 101 mg/dL Normal 0-150 [facility] ([place]) Comment on above: Result Comment: Trig lyceride Reference Interval: Less than 150 Normal 150-199 Borderline high risk 200-499 High risk 500 or higher Very high risk Performed By: #### F T4, GFR, VIDH, ANEU, CMP, LIPID, CBC, TSH, ADIFF ####[address] [place], [place] [address] MALBRon 11-29-2023 U Creatinine 54.4 mg/dL Normal 28.0-117.0 [facility] ([place]) Comment on above: Performed By: #### M ALBR ####[address] [place], [place] [address] U Microalb 1091 mcg/dL Normal [facility] ([place]) Comment on above: Performed By: #### M ALBR ####[address] [place], [place] [address] U Ratio Alb/Cre 20 mcg/mg Normal 0-30 [facility] ([place]) Comment on above: Performed By: #### M ALBR ####[address] [place], [place] [address] TSHon 11-29-2023 TSH Qn 1.46 m[IU]/L Normal 0.36-3.74 [facility] ([place]) Comment on above: Performed By: #### F T4, GFR, VIDH, ANEU, CMP, LIPID, CBC, TSH, ADIFF ####[address] [place], [place] [address] VIDHon 11-29-2023 Vit. D 25-Hydroxy 24.8 ng/mL Normal [facility] ([place]) Comment on above: Result Comment: Inte rpretive Values Based on Total 25(OH) Vitamin D: Deficient <20 ng/mL Insufficient 20 - <30 ng/mL Sufficient 30-100 ng/mL Performed By: #### F T4, GFR, VIDH, ANEU, CMP, LIPID, CBC, TSH, ADIFF ####[address] [place], [place] [address] LABORATORYOrdered By: Catrachita Hopson on 06-07-2023 Albumin DL <= 20 mg/L (U) [Mass/Vol] 863 mcg/dL Invalid Interpretation Code AO ADM SS Albumin/Creatinine DL <= 20 mg/L (U) [Mass ratio] Unable to Calcu Invalid Interpretation Code 0 - 30 AO Chemistry S Creatinine (U) [Mass/Vol] mg/dL Invalid Interpretation Code 28.0 - 117.0 mg/dL AO ADM SS MALBRon 06-07-2023 U Creatinine <13.0 Low 28.0-117.0 [facility] ([place]) Comment on above: Performed By: #### M ALBR ####[address] [place], [place] [address] U Microalb 863 mcg/dL Normal [facility] ([place]) Comment on above: Performed By: #### M ALBR ####[address] [place], [place] [address] U Ratio Alb/Cre Unable to Calcu Normal 0-30 [facility] ([place]) Comment on above: Performed By: #### M ALBR ####[address] [place], [place] [address] .Auto Diffon 04-12-2023 Basophil, Absolute 0.0 10 3/mcL Normal 0.0-0.3 [facility] ([place]) Comment on above: Performed By: #### F T4, GFR, TSH, CMP, VIDH, LIPID #### [address] [address] Basophils/100 WBC (Bld) 0.7 % Normal 0.0-2.5 [facility] ([place]) Comment on above: Performed By: #### F T4, GFR, TSH, CMP, VIDH, LIPID #### [address] [address] Eosinophil, Absolute 0.1 10 3/mcL Normal 0.0-0.7 [facility] ([place]) Comment on above: Performed By: #### F T4, GFR, TSH, CMP, VIDH, LIPID #### [address] [address] Eosinophils/100 WBC (Bld) 2.0 % Normal 0.0-6.0 [facility] ([place]) Comment on above: Performed By: #### F T4, GFR, TSH, CMP, VIDH, LIPID #### [address] [address] Lymphocyte, Absolute 2.9 10 3/mcL Normal 0.9-4.3 [facility] ([place]) Comment on above: Performed By: #### F T4, GFR, TSH, CMP, VIDH, LIPID #### [address] [address] Lymphocytes/100 WBC (Bld) 42.6 % High 20.0-40.0 [facility] ([place]) Comment on above: Performed By: #### F T4, GFR, TSH, CMP, VIDH, LIPID #### [address] [address] Monocyte, Absolute 0.5 10 3/mcL Normal 0.1-1.4 [facility] ([place]) Comment on above: Performed By: #### F T4, GFR, TSH, CMP, VIDH, LIPID #### [address] [address] Monocytes/100 WBC (Bld) 7.9 % Normal 2.0-13.0 [facility] ([place]) Comment on above: Performed By: #### F T4, GFR, TSH, CMP, VIDH, LIPID #### [address] [address] Neutrophils/100 WBC (Bld) 46.8 % Low 50.0-75.0 [facility] ([place]) Comment on above: Performed By: #### F T4, GFR, TSH, CMP, VIDH, LIPID #### [address] [address] .GFRon 04-12-2023 GFR Non- >60 Normal [facility] ([place]) Comment on above: Result Comment: GFR Population mean for , Non- Americans Ages 20-29 = 116 mL/min/1.73 sq.m. Ages 30-39 = 107 mL/min/1.73 sq.m. Ages 40-49 = 99 mL/min/1.73 sq.m. Ages 50-59 = 93 mL/min/1.73 sq.m. Ages 60-69 = 85 mL/min/1.73 sq.m. Ages 70+ = 75 mL/min/1.73 sq.m. Chronic Kidney Disease: Less than 60 mL/min/1.73 square meters End Stage Renal Disease: Less than 15 mL/min/1.73 square meters Performed By: #### F T4, GFR, TSH, CMP, VIDH, LIPID #### [address] [address] GFR >60 Normal [facility] ([place]) Comment on above: Result Comment: GFR Population mean for , Non- Americans Ages 20-29 = 116 mL/min/1.73 sq.m. Ages 30-39 = 107 mL/min/1.73 sq.m. Ages 40-49 = 99 mL/min/1.73 sq.m. Ages 50-59 = 93 mL/min/1.73 sq.m. Ages 60-69 = 85 mL/min/1.73 sq.m. Ages 70+ = 75 mL/min/1.73 sq.m. Chronic Kidney Disease: Less than 60 mL/min/1.73 square meters End Stage Renal Disease: Less than 15 mL/min/1.73 square meters Performed By: #### F T4, GFR, TSH, CMP, VIDH, LIPID #### [address] [address] .NEUABSon 04-12-2023 Neutrophil, Absolute 3.2 10 3/mcL Normal 2.3-8.1 [facility] ([place]) Comment on above: Performed By: #### F T4, GFR, TSH, CMP, VIDH, LIPID #### [address] [address] BMPon 04-12-2023 BUN/Creatinine Ratio 18.8 ratio Normal 10.0-22.0 [facility] ([place]) Comment on above: Performed By: #### F T4, GFR, TSH, CMP, VIDH, LIPID #### [address] [address] Calcium [Mass/Vol] 9.1 mg/dL Normal 8.7-10.4 [facility] ([place]) Comment on above: Performed By: #### F T4, GFR, TSH, CMP, VIDH, LIPID #### [address] [address] Chloride [Moles/Vol] 107 mmol/L Normal 98-110 [facility] ([place]) Comment on above: Performed By: #### F T4, GFR, TSH, CMP, VIDH, LIPID #### [address] [address] CO2 [Moles/Vol] 30 mmol/L Normal 22-32 [facility] ([place]) Comment on above: Performed By: #### F T4, GFR, TSH, CMP, VIDH, LIPID #### [address] [address] Creatinine [Mass/Vol] 0.69 mg/dL Normal 0.50-1.20 [facility] ([place]) Comment on above: Performed By: #### F T4, GFR, TSH, CMP, VIDH, LIPID #### [address] [address] Electrolyte Balance 6.0 mEq/L Normal 4.0-15.0 [facility] ([place]) Comment on above: Performed By: #### F T4, GFR, TSH, CMP, VIDH, LIPID #### [address] [address] Glucose [Mass/Vol] 71 mg/dL Low 82-115 [facility] ([place]) Comment on above: Performed By: #### F T4, GFR, TSH, CMP, VIDH, LIPID #### [address] [address] Potassium [Moles/Vol] 4.4 mmol/L Normal 3.5-5.0 [facility] ([place]) Comment on above: Performed By: #### F T4, GFR, TSH, CMP, VIDH, LIPID #### [address] [address] Sodium [Moles/Vol] 143 mmol/L Normal 136-145 [facility] ([place]) Comment on above: Performed By: #### F T4, GFR, TSH, CMP, VIDH, LIPID #### [address] [address] Urea nitrogen [Mass/Vol] 13.0 mg/dL Normal 8.0-22.0 [facility] ([place]) Comment on above: Performed By: #### F T4, GFR, TSH, CMP, VIDH, LIPID #### [address] [address] CBCon 04-12-2023 Erythrocyte distribution width (RBC) [Ratio] 14.0 % Normal 11.5-15.5 [facility] ([place]) Comment on above: Performed By: #### F T4, GFR, TSH, CMP, VIDH, LIPID #### [address] [address] Hematocrit (Bld) [Volume fraction] 48.1 % High 34.0-46.0 [facility] ([place]) Comment on above: Performed By: #### F T4, GFR, TSH, CMP, VIDH, LIPID #### [place] [id number] Hgb 16.3 G/dL High 12.0-16.0 [facility] ([place]) Comment on above: Performed By: #### F T4, GFR, TSH, CMP, VIDH, LIPID #### [address] [address] MCH (RBC) [Entitic mass] 33.3 pg High 27.0-33.0 [facility] ([place]) Comment on above: Performed By: #### F T4, GFR, TSH, CMP, VIDH, LIPID #### [address] [address] MCHC 34.0 G/dL Normal 32.0-36.0 [facility] ([place]) Comment on above: Performed By: #### F T4, GFR, TSH, CMP, VIDH, LIPID #### [address] [address] MCV (RBC) [Entitic vol] 98.0 fL Normal 80.0-99.0 [facility] ([place]) Comment on above: Performed By: #### F T4, GFR, TSH, CMP, VIDH, LIPID #### [address] [address] Platelet 274 10 3/mcL Normal 150-450 [facility] ([place]) Comment on above: Performed By: #### F T4, GFR, TSH, CMP, VIDH, LIPID #### [place] [id number] [place], [place] [address] Platelet mean volume (Bld) [Entitic vol] 7.1 fL Normal 6.6-10.5 [facility] ([place]) Comment on above: Performed By: #### F T4, GFR, TSH, CMP, VIDH, LIPID #### [address] [address] RBC 4.91 10 6/mcL Normal 4.10-5.30 [facility] ([place]) Comment on above: Performed By: #### F T4, GFR, TSH, CMP, VIDH, LIPID #### [address] [address] WBC 6.8 10 3/mcL Normal 4.5-10.8 [facility] ([place]) Comment on above: Performed By: #### F T4, GFR, TSH, CMP, VIDH, LIPID #### [address] [address] LABORATORYOrdered By: SYSTEM SYSTEM on 04-12-2023 Basophils (Bld) [#/Vol] 0.0 103/mcL Invalid Interpretation Code 0.0 - 0.3 10^3/mcL AH Workflow SS Basophils/100 WBC (Bld) 0.7 % Invalid Interpretation Code 0.0 - 2.5 % AH Workflow SS Calcium [Mass/Vol] 9.1 mg/dL Invalid Interpretation Code 8.7 - 10.4 mg/dL AH ADM SS Chloride [Moles/Vol] 107 mmol/L Invalid Interpretation Code 98 - 110 mEq/L AH ADM SS CO2 [Moles/Vol] 30 mmol/L Invalid Interpretation Code 22 - 32 mEq/L AH ADM SS Creatinine [Mass/Vol] 0.69 mg/dL Invalid Interpretation Code 0.50 - 1.20 mg/dL AH ADM SS Electrolyte Balance 6.0 mEq/L Invalid Interpretation Code 4.0 - 15.0 mEq/L AH ADM SS Eosinophils (Bld) [#/Vol] 0.1 103/mcL Invalid Interpretation Code 0.0 - 0.7 10^3/mcL Workflow SS Eosinophils/100 WBC (Bld) 2.0 % Invalid Interpretation Code 0.0 - 6.0 % Workflow SS Erythrocyte distribution width (RBC) [Ratio] 14.0 % Invalid Interpretation Code 11.5 - 15.5 % Workflow SS GFR/1.73 sq M.predicted among blacks MDRD (S/P/Bld) [Vol rate/Area] ml/min/1.73sqm Invalid Interpretation Code Chemistry S Comment on above: Interpretive Data: GFR Population mean for , Non- Americans Ages 20-29 = 116 mL/min/1.73 sq.m. Ages 30-39 = 107 mL/min/1.73 sq.m. Ages 40-49 = 99 mL/min/1.73 sq.m. Ages 50-59 = 93 mL/min/1.73 sq.m. Ages 60-69 = 85 mL/min/1.73 sq.m. Ages 70+ = 75 mL/min/1.73 sq.m. Chronic Kidney Disease: Less than 60 mL/min/1.73 square meters End Stage Renal Disease: Less than 15 mL/min/1.73 square meters GFR/1.73 sq M.predicted among non-blacks MDRD (S/P/Bld) [Vol rate/Area] ml/min/1.73sqm Invalid Interpretation Code Chemistry S Comment on above: Interpretive Data: GFR Population mean for , Non- Americans Ages 20-29 = 116 mL/min/1.73 sq.m. Ages 30-39 = 107 mL/min/1.73 sq.m. Ages 40-49 = 99 mL/min/1.73 sq.m. Ages 50-59 = 93 mL/min/1.73 sq.m. Ages 60-69 = 85 mL/min/1.73 sq.m. Ages 70+ = 75 mL/min/1.73 sq.m. Chronic Kidney Disease: Less than 60 mL/min/1.73 square meters End Stage Renal Disease: Less than 15 mL/min/1.73 square meters Glucose [Mass/Vol] 71 mg/dL Invalid Interpretation Code 82 - 115 mg/dL ADM SS Hematocrit (Bld) [Volume fraction] 48.1 % Invalid Interpretation Code 34.0 - 46.0 % AH Workflow SS Hemoglobin (Bld) [Mass/Vol] 16.3 G/dL Invalid Interpretation Code 12.0 - 16.0 G/dL AH Workflow SS Lymphocytes (Bld) [#/Vol] 2.9 103/mcL Invalid Interpretation Code 0.9 - 4.3 10^3/mcL AH Workflow SS Lymphocytes/100 WBC (Bld) 42.6 % Invalid Interpretation Code 20.0 - 40.0 % AH Workflow SS MCH (RBC) [Entitic mass] 33.3 pg Invalid Interpretation Code 27.0 - 33.0 pg AH Workflow SS MCHC 34.0 G/dL Invalid Interpretation Code 32.0 - 36.0 G/dL AH Workflow SS MCV (RBC) [Entitic vol] 98.0 fL Invalid Interpretation Code 80.0 - 99.0 fL AH Workflow SS Monocytes (Bld) [#/Vol] 0.5 103/mcL Invalid Interpretation Code 0.1 - 1.4 10^3/mcL AH Workflow SS Monocytes/100 WBC (Bld) 7.9 % Invalid Interpretation Code 2.0 - 13.0 % AH Workflow SS Neutrophils (Bld) [#/Vol] 3.2 103/mcL Invalid Interpretation Code 2.3 - 8.1 10^3/mcL AH Workflow SS Neutrophils/100 WBC (Bld) 46.8 % Invalid Interpretation Code 50.0 - 75.0 % AH Workflow SS Platelet mean volume (Bld) [Entitic vol] 7.1 fL Invalid Interpretation Code 6.6 - 10.5 fL AH Workflow SS Platelets (Bld) [#/Vol] 274 103/mcL Invalid Interpretation Code 150 - 450 10^3/mcL AH Workflow SS Potassium [Moles/Vol] 4.4 mmol/L Invalid Interpretation Code 3.5 - 5.0 mEq/L AH ADM SS RBC (Bld) [#/Vol] 4.91 106/mcL Invalid Interpretation Code 4.10 - 5.30 10^6/mcL AH Workflow SS Sodium [Moles/Vol] 143 mmol/L Invalid Interpretation Code 136 - 145 mEq/L ADM SS Urea nitrogen [Mass/Vol] 13.0 mg/dL Invalid Interpretation Code 8.0 - 22.0 mg/dL AH ADM SS Urea nitrogen/Creatinine [Mass ratio] 18.8 ratio Invalid Interpretation Code 10.0 - 22.0 ratio AH ADM SS WBC (Bld) [#/Vol] 6.8 103/mcL Invalid Interpretation Code 4.5 - 10.8 10^3/mcL AH Workflow SS Non-[employer]er [employer] Cytology Reporton Non-Buyer [employer]anner Cytology Report . Pathology Reports Accession: Collected Date/Time: Received Date/Time: Pathologist: [id number] 02/06/2023 09:33 EDT 02/07/2023 12:38 EDT SOCORRO BULL MD Non-Buyer [employer]anner Cytology Report CLINICAL INFORMATION: HEMATURIA DIAGNOSIS: ATYPICAL UROTHELIAL CELLS PRESENT SPECIMEN: URINE GROSS DESCRIPTION: # of Monolayers: 1 Volume (ml) 90 Color: Fresh clear yellow fluid Electronically Signed by Pathology report verified by [facility] Screened by: CORINNE DW Electronically signed by SOCORRO BULL Sign-Out Date: 02/08/2023 11:09 Performing Lab: [facility], [address] [place] [address] Pathology Dept Disclaimer If ancillary studies were utilized, the following Laboratory Developed Test (LDT) disclaimer will apply: Under CLIA requirements, [facility] is qualified to perform high complexity testing. For all ancillary stains, positive and negative controls stain appropriately. Performance characteristics of immunohistochemical and chromogenic in-situ hybridization tests have been determined by [facility]. These tests are used for clinical purposes, They should not be regarded as investigational or for research. Normal [facility] ([place]) CT ABDOMEN/PELVIS W/CONTRAST on 02-07-2023 CT ABDOMEN/PELVIS W/CONTRAST ORIGINAL EXAMINATION: CT OF THE ABDOMEN AND PELVIS WITH CONTRAST02/06/2023 11:16 am TECHNIQUE: CT of the abdomen and pelvis was performed with the administration of intravenous contrast. Multiplanar reformatted images are provided for review. Automated exposure control, iterative reconstruction, and/or weight based adjustment of the mA/kV was utilized to reduce the radiation dose to as low as reasonably achievable. COMPARISON: None HISTORY: ORDERING SYSTEM PROVIDED HISTORY: Reason for Exam: Hematuria/abdominal pain FINDINGS: Provided images of the lower thorax are unremarkable. The liver is mildly reduced in attenuation, which can be seen with hepatic steatosis. There is no intra or extrahepatic biliary duct dilation. No focal mass identified. A left adrenal gland nodule is indeterminate with diameter of 1.7 cm. This demonstrates a mean Hounsfield unit of 53. The right adrenal gland demonstrates slight thickening, without discrete nodularity. The gallbladder, spleen, and pancreas are within normal limits. The kidneys enhance symmetrically. There is no hydronephrosis. The visualized esophagus, stomach, and duodenum are unremarkable. The small bowel exhibits no acute abnormalities. The colon is of normal course and caliber. The appendix is within normal limits. There is no free intraperitoneal air or fluid. Large periumbilical ventral abdominal wall hernia demonstrates a hernia neck of 4.9 cm, with maximum diameter of 11.6 cm, and contains loop of transverse colon. Mild fluid is demonstrated within the hernia sac. The aorta is nonaneurysmal. No pathologically enlarged lymph nodes are identified. The urinary bladder is without wall thickening or focal mass. The patient is status post hysterectomy. No suspicious osteolytic or osteoblastic lesions are identified. Minor degenerative changes of the spine. IMPRESSION: 1. Large colon containing periumbilical hernia as described above. No evidence of resulting obstruction. 2. Indeterminate left adrenal gland nodule, most likely adenoma. A 1 year follow-up adrenal protocol CT recommended. Interpreted by: Cleve Busby DO Preliminary Report By: Cleve Busby DO Electronically signed By Cleve Busby DO Dictated Date: 02/07/2023 1:46:44 PM Prelim Date: 02/07/2023 1:55:31 PM Sign Date: 02/07/2023 1:55:31 PM Ordering Provider: DEVAUGHN ACKERMAN Normal [facility] ([place]) .GFRon 02-06-2023 GFR 102 ml/min/1.73sqm Normal [facility] ([place]) Comment on above: Result Comment: GFR Population mean for , Non- Americans Ages 20-29 = 116 mL/min/1.73 sq.m. Ages 30-39 = 107 mL/min/1.73 sq.m. Ages 40-49 = 99 mL/min/1.73 sq.m. Ages 50-59 = 93 mL/min/1.73 sq.m. Ages 60-69 = 85 mL/min/1.73 sq.m. Ages 70+ = 75 mL/min/1.73 sq.m. Chronic Kidney Disease: Less than 60 mL/min/1.73 square meters End Stage Renal Disease: Less than 15 mL/min/1.73 square meters Performed By: #### F T4, GFR, TSH, CMP, VIDH, LIPID #### [address] [address] GFR Non- 84 ml/min/1.73sqm Normal [facility] ([place]) Comment on above: Result Comment: GFR Population mean for , Non- Americans Ages 20-29 = 116 mL/min/1.73 sq.m. Ages 30-39 = 107 mL/min/1.73 sq.m. Ages 40-49 = 99 mL/min/1.73 sq.m. Ages 50-59 = 93 mL/min/1.73 sq.m. Ages 60-69 = 85 mL/min/1.73 sq.m. Ages 70+ = 75 mL/min/1.73 sq.m. Chronic Kidney Disease: Less than 60 mL/min/1.73 square meters End Stage Renal Disease: Less than 15 mL/min/1.73 square meters Performed By: #### F T4, GFR, TSH, CMP, VIDH, LIPID #### [address] [address] GFR 107 ml/min/1.73sqm Normal [facility] ([place]) Comment on above: Result Comment: GFR Population mean for , Non- Americans Ages 20-29 = 116 mL/min/1.73 sq.m. Ages 30-39 = 107 mL/min/1.73 sq.m. Ages 40-49 = 99 mL/min/1.73 sq.m. Ages 50-59 = 93 mL/min/1.73 sq.m. Ages 60-69 = 85 mL/min/1.73 sq.m. Ages 70+ = 75 mL/min/1.73 sq.m. Chronic Kidney Disease: Less than 60 mL/min/1.73 square meters End Stage Renal Disease: Less than 15 mL/min/1.73 square meters Performed By: #### F T4, GFR, TSH, CMP, VIDH, LIPID #### [address] [address] GFR Non- 88 ml/min/1.73sqm Normal [facility] ([place]) Comment on above: Result Comment: GFR Population mean for , Non- Americans Ages 20-29 = 116 mL/min/1.73 sq.m. Ages 30-39 = 107 mL/min/1.73 sq.m. Ages 40-49 = 99 mL/min/1.73 sq.m. Ages 50-59 = 93 mL/min/1.73 sq.m. Ages 60-69 = 85 mL/min/1.73 sq.m. Ages 70+ = 75 mL/min/1.73 sq.m. Chronic Kidney Disease: Less than 60 mL/min/1.73 square meters End Stage Renal Disease: Less than 15 mL/min/1.73 square meters Performed By: #### F T4, GFR, TSH, CMP, VIDH, LIPID #### [address] [address] CMPon 02-06-2023 Albumin Level 3.9 G/dL Normal 3.4-4.8 [facility] ([place]) Comment on above: Performed By: #### F T4, GFR, TSH, CMP, VIDH, LIPID #### [address] [address] Albumin/Globulin [Mass ratio] 1.3 {ratio} Normal 1.1-2.5 [facility] ([place]) Comment on above: Performed By: #### F T4, GFR, TSH, CMP, VIDH, LIPID #### [address] [address] ALP [Catalytic activity/Vol] 64 U/L Normal 40-135 [facility] ([place]) Comment on above: Performed By: #### F T4, GFR, TSH, CMP, VIDH, LIPID #### [address] [address] ALT [Catalytic activity/Vol] 23 U/L Normal 14-59 [facility] ([place]) Comment on above: Performed By: #### F T4, GFR, TSH, CMP, VIDH, LIPID #### [address] [address] AST [Catalytic activity/Vol] 17 U/L Normal 10-40 [facility] ([place]) Comment on above: Performed By: #### F T4, GFR, TSH, CMP, VIDH, LIPID #### [address] [address] Bili Total 1.2 mg/dL High 0.2-1.0 [facility] ([place]) Comment on above: Result Comment: Use of this assay is not recommended for patients undergoing treatment with eltrombopag due to the potential for falsely elevated results. Performed By: #### F T4, GFR, TSH, CMP, VIDH, LIPID #### [address] [id number] BUN/Creatinine Ratio 17 ratio Normal 7-27 [facility] ([place]) Comment on above: Performed By: #### F T4, GFR, TSH, CMP, VIDH, LIPID #### [address] [id number] Calcium [Mass/Vol] 8.6 mg/dL Normal 8.4-10.2 [facility] ([place]) Comment on above: Performed By: #### F T4, GFR, TSH, CMP, VIDH, LIPID #### [address] [id number] Chloride [Moles/Vol] 105 mmol/L Normal 98-107 [facility] ([place]) Comment on above: Performed By: #### F T4, GFR, TSH, CMP, VIDH, LIPID #### [address] [id number] CO2 [Moles/Vol] 31 mmol/L Normal 23-31 [facility] [facility] ([place] Comment on above: Performed By: #### F T4, GFR, TSH, CMP, VIDH, LIPID #### [address] [address] Creatinine [Mass/Vol] 0.71 mg/dL Normal 0.55-1.02 [facility] ([place]) Comment on above: Performed By: #### F T4, GFR, TSH, CMP, VIDH, LIPID #### [address] [address] Electrolyte Balance 4.0 mEq/L Normal 4.0-15.0 [facility] ([place]) Comment on above: Performed By: #### F T4, GFR, TSH, CMP, VIDH, LIPID #### [address] [address] Globulin 2.9 G/dL Normal [facility] ([place]) Comment on above: Performed By: #### F T4, GFR, TSH, CMP, VIDH, LIPID #### [address] [address] Glucose [Mass/Vol] 84 mg/dL Normal 80-115 [facility] ([place]) Comment on above: Performed By: #### F T4, GFR, TSH, CMP, VIDH, LIPID #### [address] [address] Potassium [Moles/Vol] 4.3 mmol/L Normal 3.5-5.1 [facility] ([place]) Comment on above: Performed By: #### F T4, GFR, TSH, CMP, VIDH, LIPID #### [address] [address] Sodium [Moles/Vol] 140 mmol/L Normal 136-145 [facility] ([place]) Comment on above: Performed By: #### F T4, GFR, TSH, CMP, VIDH, LIPID #### [address] [address] Total Protein 6.8 G/dL Normal 6.4-8.2 [facility] ([place]) Comment on above: Performed By: #### F T4, GFR, TSH, CMP, VIDH, LIPID #### [address] [address] Urea nitrogen [Mass/Vol] 12 mg/dL Normal 7-18 [facility] ([place]) Comment on above: Performed By: #### F T4, GFR, TSH, CMP, VIDH, LIPID #### [address] [address] CREon 02-06-2023 Creatinine [Mass/Vol] 0.68 mg/dL Normal 0.55-1.02 [facility] ([place]) Comment on above: Performed By: #### F T4, GFR, TSH, CMP, VIDH, LIPID #### [address] [address] FT4on 02-06-2023 Free T4 [Mass/Vol] 1.08 ng/dL Normal 0.76-1.46 [facility] ([place]) Comment on above: Performed By: #### F T4, GFR, TSH, CMP, VIDH, LIPID #### [address] [address] LIPIDon 02-06-2023 Cholesterol [Mass/Vol] 184 mg/dL Normal 0-200 [facility] ([place]) Comment on above: Result Comment: Chol esterol Reference Interval: Less than 200 Desirable 200-239 Borderline high risk 240 and above High risk Performed By: #### F T4, GFR, TSH, CMP, VIDH, LIPID #### [address] [address] Cholesterol in HDL [Mass/Vol] 69 mg/dL High 40-60 [facility] ([place]) Comment on above: Performed By: #### F T4, GFR, TSH, CMP, VIDH, LIPID #### [address] [address] Cholesterol in LDL [Mass/Vol] 94 mg/dL Normal 0-130 [facility] ([place]) Comment on above: Performed By: #### F T4, GFR, TSH, CMP, VIDH, LIPID #### [address] [address] Triglyceride [Mass/Vol] 104 mg/dL Normal 0-150 [facility] ([place]) Comment on above: Result Comment: Trig lyceride Reference Interval: Less than 150 Normal 150-199 Borderline high risk 200-499 High risk 500 or higher Very high risk Performed By: #### F T4, GFR, TSH, CMP, VIDH, LIPID #### [address] [address] MALBRon 02-06-2023 U Creatinine 26.4 mg/dL Low 28.0-117.0 [facility] ([place]) Comment on above: Performed By: #### M ALBR #### [address] [address] U Microalb 625 mcg/dL Normal [facility] ([place]) Comment on above: Performed By: #### M ALBR #### [address] [address] U Ratio Alb/Cre 24 mcg/mg Normal 0-30 [facility] ([place]) Comment on above: Performed By: #### M ALBR #### [address] [address] TSHon 02-06-2023 TSH Qn 1.32 m[IU]/L Normal 0.36-3.74 [facility] ([place]) Comment on above: Performed By: #### F T4, GFR, TSH, CMP, VIDH, LIPID #### [address] [address] VIDHon 02-06-2023 Vit. D 25-Hydroxy 34.4 ng/mL Normal [facility] ([place]) Comment on above: Result Comment: Inte rpretive Values Based on Total 25(OH) Vitamin D: Deficient <20 ng/mL Insufficient 20 - <30 ng/mL Sufficient 30-100 ng/mL Performed By: #### F T4, GFR, TSH, CMP, VIDH, LIPID #### [address] [address] Vital Signs Date Time Vital Sign Value Performing Clinician Fac[facility] 04-12-2023 09:24-0400 Diastolic Blood Pressure Non-Invasive [address] VIKKI FOSS MD [facility] 04-12-2023 09:24-0400 Systolic Blood Pressure Non-Invasive [address] VIKKI FOSS MD [facility] 04-12-2023 08:54-0400 Body height 153.[address] VIKKI FOSS MD [facility] 04-12-2023 08:54-0400 Body temperature 98.42 [degF] DR VIKKI FOSS MD [facility] 04-12-2023 08:54-0400 Body weight 73.[address] VIKKI FOSS MD [facility] 04-12-2023 08:54-0400 Body weight 31.07 kg/m2 DR VIKKI FOSS MD [facility] 04-12-2023 08:54-0400 Diastolic Blood Pressure Non-Invasive [address] VIKKI FOSS MD [facility] 04-12-2023 08:54-0400 Heart rate 68 /min DR VIKKI FOSS MD [facility] 04-12-2023 08:54-0400 Systolic Blood Pressure Non-Invasive [address] VIKKI FOSS MD [facility] Encounters Encounter Date Encounter Type Care Provider Facility Start: 06-19-2025 ambulatory Devaughn Ackerman MEMORANDUM STATEMENT CLERK Facility:[facility] Start: 01-02-2024 End: 01-02-2024 ambulatory [facility] Work Phone: Start: 01-02-2024 End: 01-02-2024 Patient encounter procedure [facility] Work Phone: Start: 11-29-2023 End: 12-04-2023 ambulatory DEVAUGHN ACKERMAN PRECISION ASSEMBLY INSPECTOR - CLINICAL OFFICE TECHNICIAN Facility:[facility] Start: 11-29-2023 End: 12-03-2023 Outreach Lab DEVAUGHN ACKERMAN PRECISION ASSEMBLY INSPECTOR - CLINICAL OFFICE TECHNICIAN [facility] Start: 06-25-2023 ambulatory DEVAUGHN EUGENE PRECISION ASSEMBLY INSPECTOR - CLINICAL OFFICE TECHNICIAN Facility:[facility] Start: 06-14-2023 End: 06-15-[address] VIKKI FSOS MD Facility:[facility] Start: 06-14-2023 End: 06-14-[address] VIKKI FOSS MD [facility] Start: 06-07-2023 End: 06-12-2023 ambulatory DEVAUGHN ETIENNEPKINS PRECISION ASSEMBLY INSPECTOR - CLINICAL OFFICE TECHNICIAN Facility:[facility] Start: 06-07-2023 End: 06-11-2023 Outreach Lab DEVAUGHN ETIENNEPKINS PRECISION ASSEMBLY INSPECTOR - CLINICAL OFFICE TECHNICIAN [facility] Start: 05-10-2023 End: 05-11-[address] VIKKI OFSS MD Facility:[facility] Start: 05-10-2023 End: 05-10-[address] VIKKI FOSS MD [facility] Start: 04-24-2023 End: 04-24-[address] VIKKI FOSS MD Facility:[facility] Start: 04-12-2023 End: 04-13-[address] VIKKI FOSS MD Facility:[facility] Start: 04-12-2023 End: 04-12-[address] VIKKI FOSS MD [facility] Start: 02-06-2023 End: 02-07-2023 ambulatory WESLEY ORELLANA Facility:[facility] Start: 04-26-2022 End: 04-26-2022 Patient encounter procedure [facility] Procedures Date Procedure Procedure Detail Performing Clinician Start: 01-02-2024 Screening mammography Start: 04-24-2023 Hernia of anterior a bdominal wall (disorder) DR VIKKI FOSS MD Start: 04-26-2022 Screening mammography Start: 07-26-2015 Measurement of respi ratory function DR VIKKI FOSS MD Start: 09-18-[address] MEL FOSS MD Start: 09-17-2010 Breast biopsy and re lated procedures DR VIKKI FOSS MD Start: 11-09-[address] FERNANDO FOSS MD Start: 09-17-2008 Computerized axial tomography of brain DR VIKKI FOSS MD Start: 09-17-[address] FLORA FOSS MD Comment on above: Thyroid Start: 09-22-[address] MEL FOSS MD Start: 1962 Goiter (disorder) DR FAUZIA FOSS MD Skin lesion (disorder) DR FAUZIA FOSS MD Immunizations Immunization Date Immunization Notes Care Provider [facility] 12-03-2020 SARS-CoV-2 mRNA (tozinameran) vaccine DR VIKKI FOSS MD [facility] [employer] 11-12-2020 SARS-CoV-2 mRNA (tozinameran) vaccine DR VIKKI FOSS MD [facility] [employer] 06-07-2020 influenza, injectabl e, quadrivalent, preservative free; Translations: [Fluarix PF Quadrivalent ] DR VIKKI FOSS MD [facility] [employer] 06-02-2019 pneumococcal polysaccharide vaccine, 23 valent; Translations: [Pneumovax 23] DR VIKKI FOSS MD [facility] [employer] 06-02-2019 influenza, injectabl e, quadrivalent, preservative free; Translations: [Fluarix PF Quadrivalent ] DR VIKKI FOSS MD [facility] [employer] 05-28-2018 influenza virus vacc ine, unspecified formulation DR VIKKI FOSS MD [facility] 07-27-2017 influenza virus vacc ine, unspecified formulation DR VIKKI FOSS MD [facility] 06-17-2016 influenza virus vacc ine, unspecified formulation DR VIKKI FOSS MD [facility] 06-17-2015 influenza virus vacc ine, unspecified formulation DR VIKKI FOSS MD [facility] 07-18-2014 influenza virus vacc ine, unspecified formulation DR VIKKI FOSS MD [facility] 01-15-2014 tetanus toxoid, redu dinh diphtheria toxoid, and acellular pertussis vaccine, adsorbed DR VIKKI FOSS MD [facility] 06-17-2013 influenza virus vacc ine, unspecified formulation DR VIKKI FOSS MD [facility] Payers Date Payer Category Payer Self-pay [id number] 2023 Private Health Insurance [id number] 2023 Unknown [id number] 2023 Private Health Insurance [id number] 1960 Unknown [id number] 2.16.8 [id number] 1962 Unknown [id number] 2.16.8 [id number] 1962 Unknown [id number] 2.16.8 [id number] 1962 Unknown [id number] 2.16.8 [id number] 1962 Unknown [id number] 2.16.8 [id number] 1962 Unknown [id number] 2.16.8 [id number] 1962 Unknown [id number] 2.16.8 [id number] 1962 Unknown [id number] 2.16.8 [id number] 1962 Unknown [id number] 2.16.8 [id number] Unknown [id number] 2.16.8 [id number] Social History Date Type Detail Facility Start[facility] Start: 1960 Sex Assigned At Female [facility] Start: 04-12-2023 End: 11-16-2023 Tobacco smoking status Light tobacco smoker (finding) [facility] Comment on above: smoking cessation in fo given Daily smoke exposure Start: 06-07-2023 Tobacco smoking status Heavy t obacco smoker (finding) [facility] Comment on above: smoking cessation in fo given Daily smoke exposure Medical Equipment Procedure Code Equipment Code Equipment Origin al Text Equipment Identifier Dates Robotic Assisted Laparoscopic Ventral He Unknown 04/24/23 Unknown Unknown FDA Start: 04-24-2023 Robotic Assisted Laparoscopic Ventral He Unknown 04/24/23 Unknown Unknown FDA Start: 04-24-2023 Robotic Assisted Laparoscopic Ventral He Unknown 04/24/23 Unknown Unknown FDA Start: 04-24-2023 Robotic Assisted Laparoscopic Ventral He Unknown 04/24/23 Unknown Unknown FDA Start: 04-24-2023 Evaluation + Plan note Laboratory Note Date & Type Note Facility Evaluation + Plan note Future Appointments Appointment Date:06/07/2023 10:40:00 AM Scheduled Provider:DEVAUGHN ACKERMAN APRN, CNP Location:[facility] Appointment Type:PC OV Follow Up Future Scheduled TestsThyroid Stimulating Hormone 06/07/23Free T4 06/07/23Complete Blood Count 06/07/23Lipid Profile 06/07/23Albumin/Creatinine Ratio, Random Urine 06/07/23Microalbumin Level Urine 11/08/22Vitamin D Level 06/07/23Complete Metabolic Panel 06/07/23 [facility] Evaluation + Plan note Laboratory Note Date & Type Note Facility Evaluation + Plan note Future Appointments Appointment Date:06/07/2023 10:40:00 AM Scheduled Provider:DEVAUGHN ACKERMAN APRN, CNP Location:[facility] Appointment Type:PC OV Follow Up Appointment Date:06/14/2023 10:00:00 AM Scheduled Provider:VIKKI FOSS JR, MD Location:[facility] Appointment Type:GS OV Post Op Future Scheduled TestsThyroid Stimulating Hormone 06/07/23Fr T4 06/07/23Complete Blood Count 06/07/23Lipid Profile 06/07/23Albumin/Creatinine Ratio, Random Urine 06/07/23Microalbumin Level Urine 11/08/22Vitamin D Level 06/07/23Complete Metabolic Panel 06/07/23 [facility] Evaluation + Plan note LaboratoryRadiology Note Date & Type Note Facility Evaluation + Plan note Future Appointments Appointment Date:06/14/2023 10:00:00 AM Scheduled Provider:VIKKI FOSS JR, MD Location:[facility] Appointment Type:GS OV Post Op Appointment Date:11/29/2023 09:15:00 AM Scheduled Provider: [facility] Appointment Type:PC Nurse Lab Appointment Date:12/06/2023 09:20:00 AM Scheduled Provider:DEVAUGHN ACKERMAN APRN - GURU Location:[facility] Appointment Type:PC OV Future Scheduled TestsThyroid Stimulating Hormone 06/07/23Thyroid Stimulating Hormone 12/06/23Free T4 06/07/23Free T4 12/06/23Complete Blood Count 06/07/23Complete Blood Count 12/06/23Lipid Profile 06/07/23Lipid Profile 12/06/23Albumin/Creatinine Ratio, Random Urine 06/07/23Albumin/Creatinine Ratio, Random Urine 12/06/23Microalbumin Level Urine 11/08/22Vitamin D Level 06/07/23Vitamin D Level 12/06/23Complete Metabolic Panel 06/07/23Complete Metabolic Panel 12/06/23[facility] Mammo Screening Bilateral w/ Ramy 06/07/23MA Mammo Screening Bilateral w/ Ramy 06/07/[address] [facility] Evaluation + Plan note LaboratoryRadiology Note Date & Type Note Facility Evaluation + Plan note Future Appointments Appointment Date:11/29/2023 09:15:00 AM Scheduled Provider: Location:[facility] Appointment Type:PC Nurse Lab Appointment Date:12/06/2023 09:20:00 AM Scheduled Provider:DEVAUGHN ACKERMAN APRN - GURU Location:[facility] Appointment Type: OV Future Scheduled TestsThyroid Stimulating Hormone 06/07/23Thyroid Stimulating Hormone 12/06/23Free T4 06/07/23Free T4 12/06/23Complete Blood Count 06/07/23Complete Blood Count 12/06/23Lipid Profile 06/07/23Lipid Profile 12/06/23Albumin/Creatinine Ratio, Random Urine 06/07/23Albumin/Creatinine Ratio, Random Urine 12/06/23Microalbumin Level Urine 11/08/22Vitamin D Level 06/07/23Vitamin D Level 12/06/23Complete Metabolic Panel 06/07/23Complete Metabolic Panel 12/06/23[facility] Mammo Screening Bilateral w/ Ramy 06/07/23[facility] Mammo Screening Bilateral w/ Ramy 06/07/23 [facility] Evaluation + Plan note LaboratoryRadiology Note Date & Type Note Facility Evaluation + Plan note Future Appointments Appointment Date:12/06/2023 09:20:00 AM Scheduled Provider:DEVAUGHN ACKERMAN APRN - CLINICAL OFFICE TECHNICIAN [facility] Appointment Type: OV Future Scheduled TestsThyroid Stimulating Hormone 06/07/23Free T4 06/07/23Complete Blood Count 06/07/23Lipid Profile 06/07/23Albumin/Creatinine Ratio, Random Urine 06/07/23Microalbumin Level Urine 11/08/22Vitamin D Level 06/07/23Complete Metabolic Panel 06/07/23[facility] Mammo Screening Bilateral w/ Ramy 06/07/23MA Mammo Screening Bilateral w/ Ramy 06/28/[address] [facility] Evaluation note Note Date & Type Note Facility Evaluation note No assessment information availa isabel [facility] Work Phone: Hospital course Narrative Note Date & Type Note Facility Hospital course Narrative No data available for this section [facility] Hospital Discharge instructions Note Date & Type Note Facility Hospital Discharge instructions No data available for this section [facility] Progress note Note Date & Type Note Facility Progress note No data available for this section [facility] Chief Complaint and Reason for Visit Chief Complaint SCREENING Chief Complaint SCREENING Advance Directives No Advanced Directives Records Found Advance Directive Response Recorded Date/ Time Living Will No January 22, 2018 7: 08am Power of Blog Writer No January 22, 2018 7:08am Summary Purpose Family History No Family History Records Found Additional Source Comments Goals (unrecognized section and content) Goals may be documented in a n alternate section No data available for this section No data available for this section No data available for this section No data available for this section No data available for this sectionGoals may be documented in an alternate section Patient Care team informatio n (unrecognized section and content) Team Status: Active Member Role Status Dates Devaughn Ackerman MEMORANDUM STATEMENT CLERK, MEMORANDUM STATEMENT CLERK-C Family Provider Activ e Devaughn Ackerman MEMORANDUM STATEMENT CLERK, MEMORANDUM STATEMENT CLERK-C Primary Care Provider Active Team Status: Inactive Member Role Status Dates Devaughn Ackerman MEMORANDUM STATEMENT CLERK, MEMORANDUM STATEMENT CLERK-C Primary Care Provider, Attending Provider, Referring Provider Active INFORMATION SOURCE (unrecogn ized section and content) DATE CREATED AUTHOR 12/03/2023 [facility] ([place]) DATE CREATED AUTHOR AUTHOR'S ORGANIZ ATION 06/11/2025 [facility] FOR RECORDS PERTAINING TO PATIENTS WHO ARE OR HAVE BEEN ENROLLED IN A CHEMICAL DEPENDENCY/SUBSTANCEABUSE PROGRAM, SOME INFORMATION MAY BE OMITTED. This clinical summary was aggregated from multiple sources. Caution should be exercised in using it in the provision of clinical care. This summary normalizes information from multiple sources, and as a consequence, information in this document may materially change the coding, format and clinical context of patient data. In addition, data may be omitted in some cases. CLINICAL DECISIONS SHOULD BE BASED ON THE PRIMARY CLINICAL RECORDS. [employer] [facility]. provides no warranty or guarantee of the accuracy or completeness of information in this document.
== END | disposition home or self-care (01) ==
LOC: OPBI 10:26
PROVIDERS: PCP Nurse Practitioner Family; Referring Provider Nurse Practitioner Family; Visit Provider Nurse Practitioner Family
DX: Z12.31 Encounter for screening mammogram for malignant neoplasm of breast (principal)
CPT/HCPCS: 77063; 77067